=== PATIENT | male | born 2000 | race Caucasian/White ===

== ENCOUNTER 2022-09-28 14:28 | Emergency (ER) | payer SELFPAY ==
[~2022-09-28] VITALS: Ht 162.6 cm; Wt 60.0 kg
[2022-09-28] MEDS ORDERED: IBUPROFEN 600MG TABLET PO STA (16:40)
[2022-09-28] MEDS ORDERED: VANCOMYCIN 1G PREMIX 200 ML IV ONE (19:00)
[2022-09-28] MEDS ORDERED: PIPERACILLIN/TAZ 3.375G PREMIX 50 ML IV ONE (19:00)
[2022-09-28] MEDS ORDERED: KETOROLAC 30MG/ML VIAL IV STA (19:00)
[2022-09-28 19:38] LABS: BASOPHILS % 0.5 % (0.0-2.0); EOSINOPHILS % 0.6 % (0.0-5.0); HEMATOCRIT. 42.6 % (42.0-52.0); HEMOGLOBIN. 14.2 g/dL (14.0-18.0); LYMPHOCYTES % 14.4 % (20.0-50.0); MEAN CORPUSCULAR HEMOGLOBIN 28.8 pg (28.0-32.0); MEAN CORPUSCULAR VOLUME 86.6 fL (80.0-94.0); MEAN PLATELET VOLUME 8.9 fl (7.4-10.4); NEUTROPHILS % 75.5 % (40.0-76.0); PLATELET 249 x1000/uL (130-400); RED BLOOD CELL COUNT 4.92 mill/uL (4.7-6.1); RED CELL DISTRIBUTION WIDTH 13.4 % (11.6-14.6)
[2022-09-28 19:45] LABS: CHLORIDE 102 mEq/L (98-107)
[2022-09-28 21:45] VITALS: BP 121/72
== END 2022-09-28 21:55 | disposition left against medical advice (07) ==
LOC: ER 14:28
DX: L02.511 Cutaneous abscess of right hand (principal); L03.113 Cellulitis of right upper limb; M21.931 Unspecified acquired deformity of right forearm; M21.941 Unspecified acquired deformity of hand, right hand
CPT/HCPCS: 36415; 73130; 80053; 85025; 96365; 96368; 96375; 99284; J1885; J2543; J3370; Z7610